=== PATIENT | male | born 1975 | race Caucasian/White ===

== ENCOUNTER 2017-11-05 08:30 | Emergency (ER) | payer SELFPAY ==
[~2017-11-05] VITALS: Ht 170.2 cm; Wt 106.6 kg
[2017-11-05 08:35] VITALS: BP 160/94
--- NOTE | 2017-11-05 08:38 | NUR ---
PT AMBULATES TO BED 6
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
--- NOTE | 2017-11-05 08:40 | NUR ---
REPORT GIVEN TO LLUVIA BOURNE
--- NOTE | 2017-11-05 08:42 | NUR ---
Dorian ng in [facility] - 11/05/17 at 0843 by MED1 Patient being evaluated by DR GARCIA at bedside.
--- NOTE | 2017-11-05 08:42 | NUR ---
Patient being evaluated by DR GARCIA at bedside.
--- NOTE | 2017-11-05 08:43 | NUR ---
DR SYLVESTER EVALUATING AT BEDSIDE
[2017-11-05] MEDS ORDERED: KETOROLAC 60 MG/2 ML VIAL IM ONE (08:50)
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
[2017-11-05] MEDS ORDERED: BACITRACIN OINT 500 UNITS/GM PKT TP ONE (08:52)
[2017-11-05 09:05] VITALS: BP 156/84
--- NOTE | 2017-11-05 09:05 | NUR ---
Patient discharged with BP 156/84;PT DENIES HERNANDEZ OR DIZINESS; MD MADE AWARE. Written and verbal after care instructions given and explained. Patient alert, oriented and verbalized understanding of instructions. Ambulatory with steady gait. All questions addressed prior to discharge. ID band removed. Patient advised to follow up with PMD. Rx of MOTRIN given. Patient educated on indication of medication including possible reaction and side effects. Opportunity to ask questions provided and answered.
== END 2017-11-05 09:05 | disposition home or self-care (01) ==
LOC: MED 08:30
DX: S91.312A Laceration without foreign body, left foot, initial encounter (principal); I10 Essential (primary) hypertension; W23.0XXA Caught, crushed, jammed, or pinched between moving objects, initial encounter; Y93.89 Activity, other specified; Y92.89 Other specified places as the place of occurrence of the external cause; Y99.8 Other external cause status
CPT/HCPCS: 90471; 90715; 96372; 99284; J1885

== ENCOUNTER 2023-11-08 16:15 | Emergency (ER) | payer SELFPAY ==
[~2023-11-08] VITALS: Ht 177.8 cm; Wt 99.8 kg
[2023-11-08 17:04] VITALS: BP 143/76; PULSE 86; RESP 16; TEMP 97.9; O2SAT 98
[2023-11-08 17:54] VITALS: BP 143/76; PULSE 86; RESP 16; TEMP 97.9; O2SAT 98
== END 2023-11-08 17:54 | disposition home or self-care (01) ==
LOC: MED 16:15
DX: I10 Essential (primary) hypertension (principal); Z76.0 Encounter for issue of repeat prescription; Z79.899 Other long term (current) drug therapy
CPT/HCPCS: 99281